=== PATIENT | female | born 1970 | race Caucasian/White ===

== ENCOUNTER 2016-10-02 07:56 | Emergency (ER) | payer BC ==
[2016-10-02 08:11] VITALS: BP 114/70; PULSE 80; RESP 14; TEMP 98.2; O2SAT 97
--- NOTE | 2016-10-02 08:33 | UCPHY ---
H & P Time Seen by Provider: 10/02/16 08:00 Patient Type: New HPI/ROS: 46-year-old female presents complaining of sore throat. She has had multiple other symptoms over the last several days including nausea, body aches as well as right lower quadrant pain. She only has a sore throat today. Review of systems As per HPI General no fever no chills no weakness HEENT no eye pain no eye discharge. No eye redness, positive sore throat Respiratory no cough, no shortness of breath Cardiac no chest pain, no peripheral edema GI positive abdominal pain, no diarrhea, no constipation, no nausea, no vomiting no flank pain, no hematuria, no dysuria Musculoskeletal positive myalgias, no joint pain Heme no easy bruising, no easy bleeding Endo no polyuria, no polydipsia Skin no rashes, no pruritus Neuro no syncope, no dizziness, no headaches Psych is no suicidal ideation, no homicidal ideation Past Medical/Surgical History: Hypothyroidism Social History: Alcohol socially, no drug use Smoking Status: Unknown if ever smoked Physical Exam: 46-year-old female HEENT atraumatic normocephalic, extraocular muscles intact, anicteric Oropharynx negative for erythema negative exudate, tolerating her own secretions Neck supple no meningismus Lungs clear to auscultation bilaterally Heart regular rate and rhythm without murmur rub or gallop Abdomen nondistended normoactive bowel sounds soft nontender Back no CVA tenderness, no step-offs, no spinal tenderness Extremities no cyanosis clubbing or edema Neuro alert and oriented, no focal deficits Constitutional: Initial Vital Signs Temperature (C) 36.8 C 10/02/16 08:00 Heart Rate 80 10/02/16 08:00 Respiratory Rate 14 10/02/16 08:00 Blood Pressure 114/70 10/02/16 08:00 O2 Sat (%) 97 10/02/16 08:00 O2 Delivery Mode Room Air Allergies/Adverse Reactions: No Known Allergies Allergy (Unverified 10/02/16 08:12) Home Medications: Medication Instructions Recorded Levothyroxine 10/02/16 Medical Decision Making ED Course/Re-evaluation: Patient seen and evaluated for sore throat Differential diagnosis Strep throat, viral syndrome, influenza, URI, bronchitis Strep rapid strep negative Influenza negative Impression Bronchitis Plan Supportive care Follow up with primary care physician - Data Points Laboratory Results: 10/02/16 10/02/16 10/02/16 Unknown 08:20 08:15 Influenza Typ A,B (DFA) NEGATIVE FOR FLU (NEGATIVE) Group A Strep Screen NEGATIVE (NEGATIVE) Group A Strep DNA Pending Departure - Departure Disposition: Home, Routine, Self-Care Clinical Impression: Bronchitis Condition: Good Instructions: Acute Bronchitis (ED) Referrals: NONE *PRIMARY CARE P,. [Primary Care Provider] - As per Instructions - PQRS PQRS Measurement: Not applicable
== END 2016-10-02 09:00 | disposition home or self-care (01) ==
LOC: CED 07:56
DX: J20.9 Acute bronchitis, unspecified (principal); E03.9 Hypothyroidism, unspecified
CPT/HCPCS: 87400-PO; 87880-PO; G0463-PO